=== PATIENT | male | born 1995 | race African-American/Black ===

== ENCOUNTER 2016-06-16 18:23 | Emergency (ER) | payer SELFPAY ==
--- NOTE | ~2016-06-16 | EKG ---
PATIENT: ALTA LOPEZ UNIT #: [id number] Ventricular Rate: 62 BPM Atrial Rate: 62 BPM P-R Interval: 168 ms QRS Duration: 86 ms Q-T Interval: 364 ms QTC Calculation(Bezet): 369 ms P Lilly: 63 degrees Calculated R Lilly: 71 degrees Calculated T Lilly: 34 degrees Diagnosis Line: Normal sinus rhythm with sinus arrhythmia Diagnosis Line: Minimal voltage criteria for LVH, may be normal Diagnosis Line: variant Diagnosis Line: Nonspecific ST abnormality Diagnosis Line: Abnormal ECG Diagnosis Line: No previous ECGs available Diagnosis Line: Confirmed by TREVA TEJADA MD ([id number]) on 06/18/2016 Diagnosis Line: 9:48:58 AM INTERPRETING MD: TERRELL LAKE
--- NOTE | ~2016-06-16 | CR72 ---
[facility] A Service of [facility] RADIOLOGY TEXT RESULTS PATIENT: ALTA LOPEZ LOCATION: [facility] : [birth year] UNIT #: [id number] AGE: [address]: Duane Still MD SEX: M ORDER DR: [id number] [facility] [address] [place], [place] [address] [id number] MR#: [id number] Acc #: [id number] NAME: ALTA LOPEZ : 1995 SEX: M STUDY DATE/TIME: 06/16/2016 18:25 UNIT: [facility] ROOM: STUDY DESCRIPTION: CR Chest Single View Portable Attending Physician: Duane Still M.D. Ordering Physician: Duane Still M.D. Primary Care Physician: No Primary Care Physician MEDICAL IMAGING REPORT This report is preliminary unless electronic signature is present EXAM Portable chest HISTORY Heart palpitations and tachycardia and dizzy today. FINDINGS The cardiac size and pulmonary vascularity are normal. No infiltrates or effusions. Mild right upper thoracic curve. IMPRESSION No acute findings and no active disease. Dictated by... Damon Earl M.D. THIS IS AN ELECTRONICALLY VERIFIED REPORT Damon Earl M.D. at 06/17/2016 5:13 PM DFL/melvin TD: 06/17/2016 00:29 JOB #: [id number] MEDICAL IMAGING REPORT Page 1 of 1 COPY
[2016-06-16 17:51] LABS: BASOPHIL% 0.2 % (0-2.5); EOSINOPHIL% 0.1 % (0.0-7.0); HEMATOCRIT 42.7 % (38.0-50.0); HEMOGLOBIN 14.2 gm/dL (13.0-16.0); LYMPHOCYTE# 1.6 X10e3 (1.0-3.5); LYMPHOCYTE% 29.1 % (17.0-45.0); MEAN CORPUSCULAR HGB CONC 33.3 g/dL (30-36); MEAN PLATELET VOLUME 9.2 FL (6.5-11.5); MONOCYTE# 0.5 X10e3 (0-1.0); MONOCYTE% 9.2 % (3.0-12.0); NEUTROPHIL# 3.3 X10e3 (1.5-7.1); NEUTROPHIL% 61.4 % (40-75); PLATELET COUNT 157 X10e3 (140-420); RED CELL DISTRIBUTION WIDTH 13.1 % (11.0-15.5); WHITE BLOOD COUNT 5.4 X10e3 (4.0-10.5)
[2016-06-16 17:54] LABS: DIFF IND NO
[2016-06-16 18:01] LABS: URINE SOURCE CLEAN CATCH
[2016-06-16 18:04] LABS: POC - CKMB <1.0 ng/mL (0.0-7.9); POC - TROPONIN <0.05 ng/mL (<=0.05)
[2016-06-16 18:15] LABS: ALBUMIN SERUM 4.6 g/dL (3.5-5.0); BILIRUBIN, DIRECT 0.1 mg/dL (0.0-0.2); BILIRUBIN,INDIRECT 0.6 mg/dL (0.0-0.9); BILIRUBIN,TOTAL 0.7 mg/dL (0.2-2.0); CALCIUM SERUM 9.6 mg/dL (8.4-10.2); GLOM FILT RATE Estimated 107.1 mL/min (>60); POTASSIUM 3.4 mmol/L (3.5-5.1); PROTEIN TOTAL SERUM 7.7 g/dL (6.0-8.3)
[2016-06-16 18:18] LABS: AMPHETAMINE NEG (NEG); BARBITURATES NEG (NEG); BENZODIAZEPINES NEG (NEG); COCAINE NEG (NEG); MARIJUANA NEG (NEG); OPIATES NEG (NEG); TRICYCLIC ANTIDEPRESSANTS NEG (NEG); U METHADONE NEG (NEG)
[2016-06-16 18:41] LABS: URINE APPEARANCE CLEAR; URINE BILIRUBIN NEG (NEG); URINE BLOOD NEG (NEG); URINE COLOR DK YELLOW; URINE GLUCOSE NEG (NEG); URINE KETONE TRACE (NEG); URINE LEUKOCYTE ESTERASE NEG (NEG); URINE NITRATE NEG (NEG); URINE PH 5.5 (5-8); URINE PROTEIN NEG (NEG); URINE SPECIFIC GRAVITY 1.035 (1.003-1.035)
[2016-06-16 18:47] LABS: CULTURE INDICATED? NO
== END 2016-06-16 18:43 | disposition home or self-care (01) ==
LOC: CED 18:23
PROVIDERS: Emergency Medicine
DX: R00.2 Palpitations (principal)
CPT/HCPCS: 36415; 71010; 80048; 80076; 80307; 81003; 82553; 84443; 84484; 85025; 93005; 96360; 99285